=== PATIENT | female | born 1980 | race Caucasian/White ===

== ENCOUNTER 2022-09-16 01:23 | Outpatient (CLI) | payer BC, SELFPAY ==
--- NOTE | 2022-09-16 08:30 | DI.MRI_ITS ---
Exam(s) MR BRAIN PITUITARY WO/W EXAM: MR BRAIN PITUITARY WO/W IV Contrast: mL of Magnevist contrast administered. CLINICAL HISTORY: loss of sense of taste,AGEUSIA,R43,4 TECHNIQUE: Multiplanar multisequence MRI of the brain and pituitary gland was performed. CONTRAST MATERIAL: IV Contrast: 20 mL of Dotarem contrast administered. COMPARISON: No exams were available for comparison Findings: VENTRICLES AND EXTRA AXIAL SPACES: Normal in size and morphology for the patient's age. HEMORRHAGE: None. CEREBRAL PARENCHYMA: No focus of restricted diffusion to suggest acute infarct. No space-occupying le greg identified. MIDLINE SHIFT: None. BRAINSTEM/CEREBELLUM: Normal. CALVARIUM: Normal. ENHANCEMENT: No suspicious enhancement identified. VISUALIZED PARANASAL SINUSES/MASTOIDS: Clear. OTHER FINDINGS: None. PITUITARY: Pituitary stalk is midline. The gland demonstrates homogenous signal intensity with homogeneous enhan cement. No evidence of macroadenoma or microadenoma. The optic chiasm is unremarkable. The cavernous portions of both carotid arteries are unremarkable. Impression: Unremarkable MRI of the brain and pituitary gland. DATA REPOSITORY:
[2022-09-16] MEDS: Normal Saline Flush 10 ML SYR IVP (12:38)
[2022-09-16] MEDS: Gadoterate meglumine 20 ML SYRINGE IVP (12:38)
== END 2022-09-16 01:43 ==
LOC: DI 01:23
PROVIDERS: PCP Nurse Practitioner; Visit Provider Otolaryngology
DX: R43.2 Parageusia (principal)
CPT/HCPCS: 70553